=== PATIENT | male | born 2000 | race American Indian/Alaskan Native ===

== ENCOUNTER 2020-10-21 11:15 | Emergency (ER) | payer SELFPAY ==
[2020-10-21 12:02] VITALS: BP 145/75
--- NOTE | 2020-10-21 12:52 | Emergency Department Report ---
Chief Complaint: Urogenital-Male Stated Complaint: STD Time Seen by Provider: 10/21/20 12:50 - HPI History of Present Illness: Patient is a 20-year-old male presents emergency room complaints of dysuria and penile discharge that began couple days ago. States his partner tested positive for trichomonas. Denies any pain or swelling in the testicles, fever, vomiting, urinary retention, hematuria, back pain, abdominal pain. No past medical history. No allergies medications. vss on exam: Non toxic appearing, no acute distress atraumatic, normocephalic normal appearance of the eyes, EOMI, no periorbital edema or ecchymosis moist mucus membranes no respiratory distress, no accessory muscle use A&O x4, no focal neuro deficit Patient is presenting with symptoms of STD and STD positive exposure He is not having any abdominal pain, pain or swelling the testicles, urinary retention Patient will be referred to a clinic in the health department in order to receive a full STD panel Advised patient please follow up with clinic or health department for full std panel. have any partner tested and treated as well. avoid intercourse. return to the emergency room for any new or worsening symptoms. Patient given the appropriate resources Discussed return precautions Medical screen examination performed and there is no bed to life or limb at this time - Exam Vital Signs: Vital Signs 10/21/20 10/21/20 11:59 12:01 Temperature 98.6 F Pulse Rate 90 Respiratory 20 Rate Blood Pressure 145/75 O2 Sat by Pulse 98 Oximetry MSE screening note: Focused history and physical exam performed. Due to findings the following was ordered: ED Disposition for MSE Clinical Impression: Concern about STD in male without diagnosis Disposition: DC-01 TO HOME OR SELFCARE Is pt being admited?: No Does the pt Need Aspirin: No Condition: Stable Instructions: Safe Sex Additional Instructions: please follow up with clinic or health department for full std panel. have any partner tested and treated as well. avoid intercourse. return to the emergency room for any new or worsening symptoms. [facility] Address: [address] [place] [id number] Referrals: [facility] [Outside] - 2-3 Days [facility] [Provider Group] - 2-3 Days Forms: Work/School Release Form(ED) Time of Disposition: 12:51 Print Language: BELARUSIAN
== END 2020-10-22 12:49 | disposition left against medical advice (07) ==
LOC: ED 11:15
DX: Z20.2 Contact with and (suspected) exposure to infections with a predominantly sexual mode of transmission (principal); R36.9 Urethral discharge, unspecified; Z53.21 Procedure and treatment not carried out due to patient leaving prior to being seen by health care provider